=== PATIENT | male | born 1945 | race Hispanic/Latino ===

== ENCOUNTER → 2020-03-07 | Outpatient (CLI) | payer MEDICARE ==
--- NOTE | 2020-03-07 12:29 | Diagnostic Imaging Report ---
CT of the abdomen and pelvis. Comparison: None Clinical History: Left lower quadrant abdominal pain Technique: Helical CT scan of the abdomen and pelvis was performed. Intravenous contrast administration was not utilized. Oral contrast administration was not utilized. Coronal and sagittal reconstructions were generated from the raw data. Multiple images were submitted for interpretation. This exam was performed according to our departmental dose-optimization program which includes automated exposure control, adjustment of the mA and/or kV according to patient size Discussion: Inferior chest: Dilated airways approaching bronchiectasis bilaterally. No focal mass, nodule or infiltrate. No pleural effusion. No pneumothorax. No pericardial effusion. Coronary artery calcification. Mild gynecomastia Liver: Unremarkable Spleen: Unremarkable Pancreas: Unremarkable Biliary tree and gallbladder: Unremarkable Adrenal glands: Unremarkable Kidneys and ureters: 83.1 AP by 2.5 transverse by 2.7 craniocaudad exophytic cyst in the medial upper cortex of the left kidney. It measures approximately 1 Hounsfield unit density. Likely a simple renal cyst. Further evaluation can be performed with a CT with contrast, an ultrasound or an MRI with contrast. Each kidney measures approximately 8 cm in craniocaudad dimension. This is small. Vasculature: Atherosclerotic calcification of aortoiliac vessels and their branches. Lymph nodes: No lymphadenopathy Bowel: Grossly unremarkable. There is colonic interposition between the liver and abdominal wall. There is presence of multiple curvilinear calcifications around the colon suggestive of calcified appendices epiploicae suggestive of prior epiploic appendagitis. There is also a calcific density in other long appendix. There are no signs of acute inflammation around the bowel. Pelvis: Urinary bladder is unremarkable. Prostate unremarkable. Seminal vesicles unremarkable. Pelvic wall unremarkable. Peritoneum: No free intraperitoneal fluid or air. Perineal compartments: unremarkable. Fluid: No ascites. Bones: No aggressive bony lesions. Body wall: Unremarkable. Calcified right corpus cavernosum vessel. Impression: No acute abnormality on this exam to explain the left lower quadrant pain in this patient. Bilateral atrophic kidneys. With a left renal cyst as described above Signed by: Zaid Bridges MD on 03/07/2020 12:25 PM
== END ==
LOC: CT 10:38
PROVIDERS: ATTEND Urology
DX: R10.32 Left lower quadrant pain (principal); N26.1 Atrophy of kidney (terminal); N28.1 Cyst of kidney, acquired
CPT/HCPCS: 74176